=== PATIENT | female | born 1955 | race Caucasian/White ===

== ENCOUNTER → 2019-01-26 | Outpatient (CLI) | payer OTHER ==
[~2019-01-26] MED LIST: CARAFATE 1GM1 G PO; FLEXERIL 1010 MG/TAB PO; LORTAB 5/500 501 TAB PO; PERCOCET 325 MG1 TA2 PO; PERCOCET 325 MG1 TA3 PO; PERCOCET 5/321 UDTAB PO; PREVACID 30MG30 M1 PO; PROTONIX 40MG T40 MG PO; SOMA 350MG350 MG/TAB PO; TOPROL XL 50MG50 MG PO; TOPROL XL100 MG PO; TOPROL XL50 MG PO; XANAX 0.5MG0.5 MG PO; ZANAFLEX 4MG TAB4 MG PO; ZANAFLEX CAPSULE2 MG PO; ZOCOR 20MG20 MG PO
== END ==
LOC: COL.VAS 14:46
DX: Z13.6 Encounter for screening for cardiovascular disorders (principal); R60.9 Edema, unspecified

== ENCOUNTER 2019-06-18 19:17 | Observation (INO) | payer OTHER ==
[~2019-06-18] VITALS: Ht 160 cm; Wt 119.2 kg
[2019-06-18 21:58] LABS: BASO % 0.2 % (0.0-2.0); EOS # 0.1 (0.0-0.7); EOS % 1.2 % (0-4.0); GRAN % 66.7 % (42.2-75.2); HEMATOCRIT 39.4 % (37.0-47.0); HEMOGLOBIN 12.7 g/dl (12.5-16.0); LYMPH # 1.5 (1.2-3.4); LYMPH % 24.4 % (20.0-51.0); MEAN CELL VOLUME 95 fl (80.0-100.0); MEAN CORPUSCULAR HEMOGLOBIN 31 pg (27.0-31.0); MEAN CORPUSCULAR HGB CONC 32 g/dl (33.0-37.0); MEAN PLATELET VOLUME 9.9 fl (7.4-10.4); MONO # 0.4 (0.1-0.6); MONO % 7.2 % (1.7-9.3); PLATELET COUNT 179 K/mm3 (130-400); RED BLOOD COUNT 4.15 M/mm3 (4.10-5.30); REDCELL DISTRIBUTION WIDTH-CV 13.7 % (11.5-14.5)
[2019-06-18 22:08] LABS: ALANINE AMINOTRANSFERASE 21 U/L (9-52); ALBUMIN 4.2 gm/dL (3.5-5.0); ALKALINE PHOSPHATASE 73 U/L (50-136); ANION GAP 9 mmol/L (7-16); AST,SGOT 22 U/L (15-37); BILIRUBIN,TOTAL 0.5 mg/dL (0.0-1.0); BLOOD UREA NITROGEN 21 mg/dL (7-17); CALCIUM 9.1 mg/dL (8.4-10.2); CARBON DIOXIDE 30 mmol/L (22-30); CHLORIDE 100 mmol/L (98-107); CREATININE, serum 0.76 (0.52-1.25); GLUCOSE 147 mg/dL (74-106); POTASSIUM 3.6 mmol/L (3.4-5.0); SODIUM 139 mmol/L (137-145); TOTAL PROTEIN 7.4 gm/dL (6.4-8.2)
[2019-06-18 22:29] LABS: TROPONIN-I < 0.012 ng/mL (0.000-0.035)
[2019-06-19] MEDS ORDERED: ZIAC 10/6.25M1 UDTAB PO (00:03)
[2019-06-19] MEDS ORDERED: IMDUR 60MG60 MG/TAB PO (00:04)
[2019-06-19] MEDS ORDERED: LASIX 20MG TABL20 MG PO (00:05)
[2019-06-19] MEDS ORDERED: ACTOS30 MG PO (00:06)
[2019-06-19] MEDS ORDERED: NITROSTAT0.4 MG/TAB SL (00:07)
[2019-06-19] MEDS ORDERED: ASPIRIN 81M81 MG/TA2 PO (00:07)
[2019-06-19 01:06] VITALS: BP 140/44; PULSE 57; TEMP 97.9
[2019-06-19] MEDS ORDERED: BUMEX2 MG PO (01:17)
[2019-06-19] MEDS ORDERED: KLOR-CON 88 ME1 PO (01:19)
--- NOTE | 2019-06-19 02:27 | NUR ---
Arrived per cart from ED, accompanied by daughter. Unable to move self from cart to bed, slide board used. Pt has rené wrap to left knee, swelling noted. Has bilateral lower leg edema chronically. Ice pack on knee. Pt has history of pain and takes Percocet QID. IVF infusing to right forearm without redness or swelling.
[2019-06-19 03:12] VITALS: BP 102/72; PULSE 50; TEMP 98.1
[2019-06-19 03:52] LABS: BASO % 0.2 % (0.0-2.0); EOS # 0.1 (0.0-0.7); EOS % 1.1 % (0-4.0); GRAN # 3.4 (1.4-6.5); GRAN % 59.8 % (42.2-75.2); LYMPH # 1.8 (1.2-3.4); LYMPH % 31.6 % (20.0-51.0); MEAN CELL VOLUME 95 fl (80.0-100.0); MEAN CORPUSCULAR HGB CONC 32 g/dl (33.0-37.0); MEAN PLATELET VOLUME 9.8 fl (7.4-10.4); MONO # 0.4 (0.1-0.6); MONO % 7.1 % (1.7-9.3); PLATELET COUNT 153 K/mm3 (130-400); RED BLOOD COUNT 3.46 M/mm3 (4.10-5.30); REDCELL DISTRIBUTION WIDTH-CV 13.7 % (11.5-14.5)
[2019-06-19 03:57] LABS: HEMOGLOBIN 10.6 g/dl (12.5-16.0); MEAN CORPUSCULAR HEMOGLOBIN 31 pg (27.0-31.0)
--- NOTE | 2019-06-19 04:00 | NUR ---
Pt remains sleeping, spouse at bedside. IVF infusing without problem.
[2019-06-19 04:01] LABS: ANION GAP 6 mmol/L (7-16); BLOOD UREA NITROGEN 18 mg/dL (7-17); CALCIUM 8.4 mg/dL (8.4-10.2); CARBON DIOXIDE 30 mmol/L (22-30); CHLORIDE 104 mmol/L (98-107); CREATININE, serum 0.74 (0.52-1.25); GLUCOSE 111 mg/dL (74-106); POTASSIUM 3.4 mmol/L (3.4-5.0); SODIUM 140 mmol/L (137-145)
[2019-06-19 04:13] LABS: TROPONIN-I < 0.012 ng/mL (0.000-0.035)
[2019-06-19 08:24] VITALS: BP 146/67; PULSE 63; TEMP 98.8
--- NOTE | 2019-06-19 11:10 | NUR ---
Hospitalist rounded. MRI ordered of lumber spine. Lainey From MRI received patient on cart. Patient started having anxiety about claustrophobia-ativan ordered & given per orders. Morphine for severe back pain prior to Mri as well, then she has concerns about nausea, zofran PRN. Iv to INT per orders. Patient has chronic edema to BLE, worsening with IVF. Patient did not have any interest in breakfast. She has been up to bedside commode-slow to move but did okay with walker & gaitbelt 2 assist. Ice pack has been to knee, Cms intact, Will await her return from MRI
[2019-06-19 12:34] VITALS: BP 107/59; PULSE 95; TEMP 98.9
--- NOTE | 2019-06-19 13:02 | NUR ---
Patient has returned from MRI. Reports Ativan did help her anxiety. Pain more elevated. Percocet for home regiment, main complaint is back pain still, some pain in her L.knee. She still has minimal appetite. Her at bedside.
[2019-06-19 16:16] VITALS: BP 102/43; PULSE 57; TEMP 98.4
--- NOTE | 2019-06-19 19:03 | NUR ---
Patient resting in bed. Family at bedside. Better appetite this evening. Pain is increased after ortho rounded & manipulated knee- immobilizer ordered. Patient has required Iv pain medication, & hospitlaist verified her able to have home muscle relaxant. Patient has been using [place] jason, hopeful for dc home tmrw.
[2019-06-19 19:40] VITALS: BP 91/46; PULSE 61; TEMP 98
--- NOTE | 2019-06-19 19:45 | NUR ---
PATIENT UP TO BATHROOM WITH GAIT BELT/WALKER/ONE ASSIST. GAIT SLOW AND STEADY. ASKING FOR PAIN MEDS.
--- NOTE | 2019-06-19 20:03 | NUR ---
MEDICATED WITH HS MEDS INCLUDING MORPHINE 2MG IVP. HAS SL TO RIGHT FOREARM WITHOUT REDNESS OR SWELLING. HAS BRUISING TO LEFT KNEE, MONSTER WRAP REMOVED PER HER REQUEST. SKIN TO LEFT KNEE SENSITIVE TO TOUCH, EDEMA PRESENT. IS ALERT AND ORIENTED X4.
[2019-06-20] VITALS (7 sets, daily range): BP systolic 105–121; BP diastolic 43–58; PULSE 56–66; TEMP 98–99.7
--- NOTE | 2019-06-20 03:16 | NUR ---
PATIENT UP TO BATHROOM TO VOID, USING WALKER/GAIT BELT AND ONE ASSIST. GAIT SLOW AND STEADY. MEDICATED WITH MORPHINE 2MG IVP FOR PAIN 8/10 TO LEFT KNEE. REFUSES ICE AND HAS NOT TRIED THE IMMOBILIZER WHEN UP.
--- NOTE | 2019-06-20 05:30 | NUR ---
Reports pain 9/10 to left knee, medicated with Morphine 2mg IV, Percocet and Zanaflex 2mg PO. Has been ambulating to the bathroom with walker and assist.
[2019-06-20 07:25] LABS: BASO % 0.6 % (0.0-2.0); EOS # 0.1 (0.0-0.7); EOS % 1.3 % (0-4.0); GRAN # 2.9 (1.4-6.5); GRAN % 55.4 % (42.2-75.2); HEMOGLOBIN 10.2 g/dl (12.5-16.0); LYMPH # 1.8 (1.2-3.4); LYMPH % 33.8 % (20.0-51.0); MEAN CELL VOLUME 98 fl (80.0-100.0); MEAN CORPUSCULAR HEMOGLOBIN 31 pg (27.0-31.0); MEAN CORPUSCULAR HGB CONC 31 g/dl (33.0-37.0); MONO # 0.5 (0.1-0.6); MONO % 8.7 % (1.7-9.3); PLATELET COUNT 150 K/mm3 (130-400); RED BLOOD COUNT 3.33 M/mm3 (4.10-5.30)
[2019-06-20 07:27] LABS: CALCIUM 8.1 mg/dL (8.4-10.2); CREATININE, serum 0.93 (0.52-1.25); POTASSIUM 3.7 mmol/L (3.4-5.0)
[2019-06-20 07:33] LABS: HEMATOCRIT 32.6 % (37.0-47.0)
--- NOTE | 2019-06-20 11:52 | NUR ---
SW met with the patient to discuss a discharge plan. The patient lives alone in [place]. The patient has a walker, if needed and patient reports independence with ADLs. The patient's PCP is Dr. Paez and patient receives medications from [facility] with no difficulties. The patient does not have advanced directives in the EMR but was interested in a DPOA-HC form. Form provided. The patient plans to return home upon discharge with daughter or friend providing transportation. There are no additonal needs at this time.
--- NOTE | 2019-06-20 18:22 | NUR ---
Patient resting in bed. Her po pain medication seems to last about 3 hours and then she is requesting medication, but she has been able to make it the full 4 hours. Pain elevated with movement, but she was able to work with therapy. She has tolerated diet, no nausea. Immobilzer brace that was order did not fit patient. Will report off to night nurse
--- NOTE | 2019-06-20 19:07 | NUR ---
Patient reports pain in her LLE. Percocet did not relieve, HS muscle relaxant given.
--- NOTE | 2019-06-21 02:47 | NUR ---
PATIENT DOING WELL THROUGHOUT NIGHT. TAKING PRN PERCOCET Q 4 HRS, BUT REQUESTS MORE OFTEN. STATES IT IS TOLERABLE TO WAIT BUT PAIN IS MODERATE. INT TO R FA. 3 L O2 VIA NC. BRUISING TO L KNEE NOTED. NO FURTHER NEEDS AT THIS TIME. WILL CONTINUE TO MONITOR.
[2019-06-21 03:08] VITALS: BP 115/46; PULSE 66; TEMP 97.9
[2019-06-21 08:35] VITALS: BP 126/54; PULSE 63; TEMP 98.1
[2019-06-21] MEDS ORDERED: PERCOCET 325 MG1 TA3 PO (09:25)
[2019-06-21 10:12] LABS: BASO % 0.4 % (0.0-2.0); EOS # 0.1 (0.0-0.7); EOS % 1.2 % (0-4.0); GRAN # 2.7 (1.4-6.5); GRAN % 52.6 % (42.2-75.2); HEMOGLOBIN 10.9 g/dl (12.5-16.0); LYMPH # 1.9 (1.2-3.4); LYMPH % 36.3 % (20.0-51.0); MEAN CELL VOLUME 95 fl (80.0-100.0); MEAN CORPUSCULAR HEMOGLOBIN 31 pg (27.0-31.0); MEAN CORPUSCULAR HGB CONC 32 g/dl (33.0-37.0); MEAN PLATELET VOLUME 9.6 fl (7.4-10.4); MONO # 0.5 (0.1-0.6); MONO % 9.1 % (1.7-9.3); PLATELET COUNT 165 K/mm3 (130-400); RED BLOOD COUNT 3.56 M/mm3 (4.10-5.30)
[2019-06-21 10:16] LABS: HEMATOCRIT 33.9 % (37.0-47.0)
[2019-06-21 10:48] LABS: CREATININE, serum 0.79 (0.52-1.25); POTASSIUM 3.2 mmol/L (3.4-5.0)
--- NOTE | 2019-06-21 11:00 | NUR ---
Patient is doing well today. She is getting up well with PT. She stated has a walker at home and everything else she needs to get around. Patient is well controlled with pain pills. She is drowsy this morning when she lays in bed. Denies nausea. LLE is elevated on pillows with ice. Encouraged her to keep it up. No other changes at this time. Call light within reach.
[2019-06-21 11:55] VITALS: BP 127/73; PULSE 66; TEMP 99
[2019-06-21 16:14] VITALS: BP 95/47; PULSE 58; TEMP 97.9
--- NOTE | 2019-06-21 17:35 | NUR ---
Patient is discharging home. Discharge instructions discussed with patient and family. No questions verbalized. Explained she needs to call to make follow up appointments. Attempted to call when order for discharge was put in but the offices were already closed. She has a prescription for norco to get filled at this pharmacy. Copies of discharge instructions sent with patient. All belongings packed up and sent with patient. Patient walked out via wheel chair by Juan CABEZAS.
== END 2019-06-21 17:35 | disposition home or self-care (01) ==
LOC: COL.ER 19:17 → SURG 23:30
PROVIDERS: Emergency Medicine; Nurse Practitioner Family; Physician Assistant; ADMIT Student in an Organized Health Care Education/Training Program
DX: M79.662 Pain in left lower leg (principal); J96.00 Acute respiratory failure, unspecified whether with hypoxia or hypercapnia; I11.0 Hypertensive heart disease with heart failure; I50.30 Unspecified diastolic (congestive) heart failure; E78.5 Hyperlipidemia, unspecified; I25.10 Atherosclerotic heart disease of native coronary artery without angina pectoris; I34.1 Nonrheumatic mitral (valve) prolapse; R60.0 Localized edema; E11.9 Type 2 diabetes mellitus without complications; K21.9 Gastro-esophageal reflux disease without esophagitis; F41.9 Anxiety disorder, unspecified; M79.7 Fibromyalgia; M54.9 Dorsalgia, unspecified; G89.29 Other chronic pain; W18.30XA Fall on same level, unspecified, initial encounter; I50.33 Acute on chronic diastolic (congestive) heart failure; Z79.899 Other long term (current) drug therapy; Z79.82 Long term (current) use of aspirin
CPT/HCPCS: 99222-AI; 99232-AI; 99239; J1170; J1650; J1885; J2060; J2270; J2405; J2550; J7030

== ENCOUNTER 2021-07-10 11:44 | Inpatient (IN) | payer MEDICARE ==
[~2021-07-10] VITALS: Ht 160 cm; Wt 111.2 kg
[~2021-07-10 11:44] MED LIST changes: +ACTOS30 MG PO; +ASPIRIN 81M81 MG/TA2 PO; +BUMEX2 MG PO; +IMDUR 60MG60 MG/TAB PO; +KLOR-CON 88 ME1 PO; +LASIX 20MG TABL20 MG PO; +NITROSTAT0.4 MG/TAB SL; +ZIAC 10/6.25M1 UDTAB PO
[2021-07-10 12:47] LABS: HEMATOCRIT 39.3 % (37.0-47.0); HEMOGLOBIN 12.7 g/dl (12.5-16.0); MEAN CELL VOLUME 93 fl (80.0-100.0); MEAN CORPUSCULAR HEMOGLOBIN 30 pg (27-31); MEAN CORPUSCULAR HGB CONC 32 g/dl (33.0-37.0); PLATELET COUNT 201 K/mm3 (130-400); RED BLOOD COUNT 4.23 M/mm3 (4.10-5.30); REDCELL DISTRIBUTION WIDTH-CV 14.5 % (11.5-14.5)
[2021-07-10 12:54] LABS: INR 1.3 (0.8-3.0); PROTHROMBIN TIME 14.4 SECONDS (9.7-12.8)
[2021-07-10] MEDS ORDERED: ASPIRIN E.C. 8181 MG PO (13:19)
[2021-07-10 13:33] LABS: BILIRUBIN,TOTAL 0.9 mg/dL (0.2-1.2); C-REACTIVE PROTEIN 6.32 mg/dL (0.00-0.50); CALCIUM 8.4 mg/dL (8.4-10.2); CREATININE, serum 1.64 mg/dL (0.57-1.11); POTASSIUM 3.6 mmol/L (3.5-4.5); TOTAL PROTEIN 7.1 gm/dL (6.2-8.1)
[2021-07-10 13:40] LABS: TROPONIN-I 0.034 ng/mL (0.00-0.033)
[2021-07-10 13:43] LABS: BAND 2 % (0-10); EOSINOPHIL 1 % (0-4); LYMPHOCYTE 18 % (20.0-51.0); NEUTROPHILS 70 % (42.0-75.2); PLATELET ESTIMATE NORMAL (NORMAL)
[2021-07-10 18:27] VITALS: BP 131/94; PULSE 66; TEMP 98
[2021-07-10 21:11] VITALS: BP 143/64; PULSE 71; TEMP 98.5
--- NOTE | 2021-07-10 21:30 | NUR ---
Patient is resting in bed, alert and oriented x 4, VSS, 4L O2 NC. NS running at 100ml/hr. She states that her symptoms started last thursdayJul 05. She is afraid all her family started to be positive for COVID. Assessment completed, medications provided. No further needs at this time. Call light within reach.
[2021-07-11 01:29] VITALS: BP 132/56; PULSE 66; TEMP 97.7
--- NOTE | 2021-07-11 02:02 | NUR ---
Patient reports general discomfort and asked for Tylenol, provided.
[2021-07-11 04:25] VITALS: BP 143/73; PULSE 143; TEMP 97.6
[2021-07-11 06:11] LABS: HEMOGLOBIN 11.6 g/dl (12.5-16.0); MEAN CELL VOLUME 93 fl (80.0-100.0); MEAN CORPUSCULAR HEMOGLOBIN 29 pg (27-31); MEAN CORPUSCULAR HGB CONC 32 g/dl (33.0-37.0); PLATELET COUNT 232 K/mm3 (130-400); RED BLOOD COUNT 3.94 M/mm3 (4.10-5.30); REDCELL DISTRIBUTION WIDTH-CV 13.9 % (11.5-14.5)
--- NOTE | 2021-07-11 06:11 | NUR ---
Patient has been stable along the night. Right now at 5L NC. Patient looks tired but she is able to ambulate from bed to restroom with no problems. Some nausea and PRN provided. Report will be given to day RN.
[2021-07-11 06:15] LABS: HEMATOCRIT 36.5 % (37.0-47.0)
[2021-07-11 06:26] LABS: CALCIUM 7.9 mg/dL (8.4-10.2); CREATININE, serum 1.17 mg/dL (0.57-1.11); POTASSIUM 3.6 mmol/L (3.5-4.5)
--- NOTE | 2021-07-11 06:43 | NUR ---
Lab reported critical value D-dimer [address] who will check on the patient.
[2021-07-11 07:34] LABS: BAND 1 % (0-10); LYMPHOCYTE 22 % (20.0-51.0); NEUTROPHILS 71 % (42.0-75.2); PLATELET ESTIMATE NORMAL (NORMAL)
[2021-07-11 07:35] LABS: ANISOCYTOSIS 1+; MICROCYTOSIS 1+; POLYCHROMASIA 1+
[2021-07-11 08:14] VITALS: BP 134/60; PULSE 79; TEMP 98
--- NOTE | 2021-07-11 09:50 | NUR ---
The patient is COVID positive. SW contacted the patient to discuss discharge plan. The patient lives in [place] with her younger daughter, Marlene Espinoza (ph#[phone]). She reports independence with ADLs and does not have any DME. The patient's PCP is Dr. Anisha Paez and she receives her medications from [facility]. The patient does not have a DPOA-HC in EMR, but she states that she does have one completed and that the form is in her safety deposit box. She reports that her kids do not have her information to get in the box, so would not be able to get the copy. She reports that she is seperated from her , but they are not legally . She has three children: Radha Espinoza, Marlene Espinoza, and Apolinar Espinoza. SW inquired if she would be interested in completing a new DPOA-HC while here. The patient was. The patient verbalized that she wants to designate her daughter, Marlene, and then her son, Apolinar Espinoza (ph#[phone]), as the alternate. JOSE FRANCISCO to collaborate with the patient's RN to obtain the patient's signature. The patient plans on returning home with her daughter upon discharge. She is currently requiring 5 liters of oxygen. SW to continue to monitor. *Discharge plan: home with daughter*
--- NOTE | 2021-07-11 10:04 | NUR ---
PT ASSESSED. NO COMPLAINTS OF PAIN OR DYSPNEA. NO SIGNS OR SYMPTOMS OF DISTRESS. CALL LIGHT WITHIN REACH
--- NOTE | 2021-07-11 10:50 | NUR ---
JOSE FRANCISCO collaborated with the patient's RN on the DPOA-HC. The patient signed the form. JOSE FRANCISCO and the patient's RN, Faith, witnessed the patient's signature. SW placed the completed form and copies on the patient's chart.
[2021-07-11 12:07] VITALS: BP 130/53; PULSE 78; TEMP 98.4
[2021-07-11 17:06] VITALS: BP 143/69; PULSE 78; TEMP 98
[2021-07-11 19:40] VITALS: BP 146/64; PULSE 72; TEMP 98.7
[2021-07-12] VITALS (7 sets, daily range): BP systolic 116–146; BP diastolic 54–79; PULSE 58–74; TEMP 97.9–98.2
--- NOTE | 2021-07-12 00:05 | NUR ---
ASSESSMENT COMPLETE FOR THIS SHIFT. PT COOPERATIVE WITH CARES. PT RESTING IN BED NAPPING. PT COMPLAINS OF BACK AND HIP PAIN THAT SHE RATES AT A 7. PT GIVEN PERCOCET AND ZANAFLEX FOR PAIN. PAIN MEDS HAVE REDUCED PAIN PER PT. PT DENIES PALPITATIONS, SOB, DIZZINESS. PT STATES SHE HAS NO OTHER NEEDS AT THIS TIME. CALL LIGHT WITHIN REACH.
[2021-07-12 06:09] LABS: MEAN CELL VOLUME 93 fl (80.0-100.0); MEAN CORPUSCULAR HEMOGLOBIN 30 pg (27-31); MEAN CORPUSCULAR HGB CONC 32 g/dl (33.0-37.0); MEAN PLATELET VOLUME 9.7 fl (7.4-10.4); PLATELET COUNT 282 K/mm3 (130-400); RED BLOOD COUNT 3.69 M/mm3 (4.10-5.30); REDCELL DISTRIBUTION WIDTH-CV 13.9 % (11.5-14.5)
[2021-07-12 06:13] LABS: HEMATOCRIT 34.3 % (37.0-47.0)
[2021-07-12 06:22] LABS: CALCIUM 7.9 mg/dL (8.4-10.2); POTASSIUM 3.3 mmol/L (3.5-4.5)
[2021-07-12 07:57] LABS: BAND 4 % (0-10); LYMPHOCYTE 13 % (20.0-51.0); NEUTROPHILS 73 % (42.0-75.2); PLATELET ESTIMATE NORMAL (NORMAL)
[2021-07-12 07:58] LABS: MICROCYTOSIS 1+
--- NOTE | 2021-07-12 10:10 | NUR ---
PT ASSESSED. NO COMPLAINTS OF PAIN OR DYSPNEA. NO SIGNS OR SYMPTOMS OF DISTRESS. CALL LIGHT WITHIN REACH
--- NOTE | 2021-07-13 00:09 | NUR ---
ASSESSMENT COMPLETE FOR THIS SHIFT. PT COOPERATIVE WITH CARES. PT RESTING IN BED AWAITING EVENING MEDS. PT CONTINUES TO COMPLAIN OF BACK AND HIP PAIN, THAT SHE RATES AT A 7. PT GIVEN PERCOCET AND ZANAFLEX FOR PAIN. PAIN MEDS SUCCESSFULLY RELIEVED PT'S PAIN. PT DENIED PALPITATIONS, SOB OR DIZZINESS. AFTER REQUESTING ICE AND A WARM BLANKET, PT STATED SHE HAD NO OTHER NEEDS AT THIS TIME. CALL LIGHT WITHIN REACH.
[2021-07-13 03:46] VITALS: BP 132/58; PULSE 65; TEMP 98.4
[2021-07-13 07:49] LABS: CALCIUM 7.9 mg/dL (8.4-10.2); CREATININE, serum 0.91 mg/dL (0.57-1.11); POTASSIUM 3.5 mmol/L (3.5-4.5)
[2021-07-13 08:28] LABS: HEMOGLOBIN 10.6 g/dl (12.5-16.0); MEAN CELL VOLUME 95 fl (80.0-100.0); MEAN CORPUSCULAR HEMOGLOBIN 30 pg (27-31); MEAN CORPUSCULAR HGB CONC 32 g/dl (33.0-37.0); MEAN PLATELET VOLUME 9.6 fl (7.4-10.4); PLATELET COUNT 290 K/mm3 (130-400); RED BLOOD COUNT 3.51 M/mm3 (4.10-5.30); REDCELL DISTRIBUTION WIDTH-CV 14.1 % (11.5-14.5)
[2021-07-13 08:29] VITALS: BP 139/67; PULSE 66; TEMP 98
[2021-07-13 08:31] LABS: HEMATOCRIT 33.2 % (37.0-47.0)
--- NOTE | 2021-07-13 09:17 | NUR ---
PT ASSESSED. NO COMPLAINTS OF PAIN OR DYSPNEA. MEDICATIONED GIVEN PER MAR. NO OTHER CONCERNS AT THSI TIME. CALL LIGHT WITHIN REACH
[2021-07-13 09:40] LABS: BAND 2 % (0-10); LYMPHOCYTE 12 % (20.0-51.0); NEUTROPHILS 71 % (42.0-75.2); PLATELET ESTIMATE NORMAL (NORMAL)
[2021-07-13 09:41] LABS: HYPOCHROMIA 1+
[2021-07-13 12:11] VITALS: BP 159/77; PULSE 67; TEMP 98.3
[2021-07-13 15:21] VITALS: BP 151/76; PULSE 75; TEMP 98.1
[2021-07-13 19:21] VITALS: BP 144/102; PULSE 70; TEMP 98.6
--- NOTE | 2021-07-13 22:41 | NUR ---
ASSESSMENT COMPLETE FOR THIS SHIFT. PT UP TO THE RESTROOM WHEN I WALKED IN FOR ASSESSMENT. PT STATED JOKINGLY, "THE LASIX THEY GAVE IS WORKING A BIT TOO WELL." PT CONTINUES WITH COMPLAINTS OF LEG, HIP AND BACK PAIN. ZANAFLEX GIVEN FOR PAIN, UNABLE TO GIVE PERCOCET BECAUSE SHE HAD IT LESS THAN 6HRS BEFORE. WILL CONTINUE TO MONITOR PT'S PAIN AND GIVE PERCOCET WHEN APPROPRIATE. PT ALSO STATES SHE FEELS MOST BETTER AND IS EAGER TO GET HOME. PT DENIES PALPITATIONS, SOB, N,V,D OR DIZZINESS. PT STATES SHE HAS NO OTHER NEEDS AT THIS TIME. CALL LIGHT WITHIN REACH.
[2021-07-13 23:57] VITALS: BP 150/84; PULSE 62; TEMP 97.9
[2021-07-14] VITALS (8 sets, daily range): BP systolic 126–173; BP diastolic 55–91; PULSE 58–73; TEMP 97.8–98.2
[2021-07-14 06:18] LABS: BASO % 0.2 % (0.0-2.0); GRAN # 3.8 K/mm3 (1.4-6.5); GRAN % 68.2 % (42.2-75.2); HEMOGLOBIN 11.8 g/dl (12.5-16.0); LYMPH # 1.1 K/mm3 (1.2-3.4); LYMPH % 19.4 % (20.0-51.0); MEAN CELL VOLUME 92 fl (80.0-100.0); MEAN CORPUSCULAR HEMOGLOBIN 30 pg (27-31); MEAN CORPUSCULAR HGB CONC 32 g/dl (33.0-37.0); MEAN PLATELET VOLUME 9.7 fl (7.4-10.4); MONO # 0.6 K/mm3 (0.1-0.6); MONO % 10.8 % (1.7-9.3); PLATELET COUNT 222 K/mm3 (130-400); RED BLOOD COUNT 3.96 M/mm3 (4.10-5.30); REDCELL DISTRIBUTION WIDTH-CV 13.7 % (11.5-14.5)
[2021-07-14 06:23] LABS: HEMATOCRIT 36.5 % (37.0-47.0)
[2021-07-14 06:38] LABS: ALBUMIN 2.7 gm/dL (3.4-4.8); BILIRUBIN,TOTAL 0.5 mg/dL (0.2-1.2); C-REACTIVE PROTEIN 1.38 mg/dL (0.00-0.50); CREATININE, serum 1.02 mg/dL (0.57-1.11); POTASSIUM 3.2 mmol/L (3.5-4.5); TOTAL PROTEIN 5.9 gm/dL (6.2-8.1)
[2021-07-14 07:00] LABS: BILIRUBIN,DIRECT 0.3 mg/dL (0.0-0.5)
--- NOTE | 2021-07-14 09:33 | NUR ---
PT ASSESSED. NO COMPLAINTS OF PAIN OR DYSPNEA. NO SIGNS OR SYMPTOMS OF DISTRESS. CALL LIGHT WITHIN REACH
--- NOTE | 2021-07-14 10:03 | NUR ---
ATTEMPTED EX OX. PT TOO DIZZY TO WALK. RN AND MD NOTIFIED
--- NOTE | 2021-07-15 00:57 | NUR ---
ASSESSMENT COMPLETE FOR THIS SHIFT. PT UP TO THE RESTROOM WHEN I WALKED IN FOR ASSESSMENT. PT CONTINUES WITH CHRONIC BACK, HIP AND LEG PAIN. PERCOCET AND ZANAFLEX FOR PAIN. PT DENIES PALPITATIONS, N,V,D, SOB OR DIZZINESS. NO EVENTFULL CHANGES NOTED WITH PT THIS SHIFT. PT STATES SHE HAS NO OTHER NEEDS AT THIS TIME. CALL LIGHT WITHIN REACH.
[2021-07-15 04:00] VITALS: BP 148/70; PULSE 69; TEMP 97.9
[2021-07-15 07:18] LABS: HEMOGLOBIN 12.5 g/dl (12.5-16.0); MEAN CELL VOLUME 94 fl (80.0-100.0); MEAN CORPUSCULAR HEMOGLOBIN 30 pg (27-31); MEAN CORPUSCULAR HGB CONC 32 g/dl (33.0-37.0); MEAN PLATELET VOLUME 9.7 fl (7.4-10.4); PLATELET COUNT 321 K/mm3 (130-400); RED BLOOD COUNT 4.15 M/mm3 (4.10-5.30); REDCELL DISTRIBUTION WIDTH-CV 13.8 % (11.5-14.5)
[2021-07-15 07:27] LABS: CALCIUM 8.4 mg/dL (8.4-10.2); CREATININE, serum 1.02 mg/dL (0.57-1.11); POTASSIUM 3.5 mmol/L (3.5-4.5)
[2021-07-15 08:09] LABS: EOSINOPHIL 1 % (0-4); HYPOCHROMIA 1+; LYMPHOCYTE 23 % (20.0-51.0); NEUTROPHILS 65 % (42.0-75.2); PLATELET ESTIMATE NORMAL (NORMAL)
[2021-07-15 08:15] VITALS: BP 125/64; PULSE 76; TEMP 98.1
--- NOTE | 2021-07-15 09:00 | NUR ---
Assessment completed, alert/oriented, vital signs stable, reports feeling better overall, using percocet PRN for chronic back pain / this is a home med for her as well, lungs are CTA/ slightly diminished in bases, no resp.difficulty noted, heart RRR/distal pulses are palpable, meds given, she is sitting up having breakfast and dneies other needs, plans for Ex. ox today and possible discharge, she denies needs at this time
[2021-07-15 11:51] VITALS: BP 135/72; PULSE 74; TEMP 98.4
--- NOTE | 2021-07-15 14:45 | NUR ---
PATIENT DOES NOT REQUIRE O2 WITH AMBULATION, BUT THERE WAS CONCERN FOR EXTREME NAUSEA AND DIZZINESS AFTER WALKING. PATIENT WAS SAT DOWN AT THE SIDE OF THE BED AND WAS VOMITING AFTER THE WALK.
[2021-07-15 17:03] VITALS: BP 157/82; PULSE 74; TEMP 99.1
[2021-07-15 20:05] VITALS: BP 155/91; PULSE 80; TEMP 98.2
--- NOTE | 2021-07-15 22:30 | NUR ---
ASSESSMENT COMPLETE FOR THIS SHIFT. PT RESTING IN BED NAPPING WHEN I WALKED IN FOR ASSESSMENT. PT DENIES PALPITATIONS, SOB, N,V,D OR DIZZINESS. PT CONTINUES WITH COMPLAINTS OF CHRONIC BACK, HIP AND LEG PAIN. PERCOCET AND ZANAFLEX GIVEN FOR PAIN. PT ALSO COMPLAINS OF UPSET STOMACH. IV PHENERGAN GIVEN. PAIN AND UPSET STOMACH RELIEVED BY MEDS. PT STATES SHE HAS NO OTHER NEEDS AT THIS TIME. CALL LIGHT WITHIN REACH.
[2021-07-15 23:54] VITALS: BP 105/57; PULSE 70; TEMP 98
[2021-07-16 04:26] VITALS: BP 140/73; PULSE 71; TEMP 97.9
[2021-07-16 06:20] LABS: HEMOGLOBIN 12.9 g/dl (12.5-16.0); MEAN CELL VOLUME 93 fl (80.0-100.0); MEAN CORPUSCULAR HEMOGLOBIN 30 pg (27-31); MEAN CORPUSCULAR HGB CONC 32 g/dl (33.0-37.0); MEAN PLATELET VOLUME 9.5 fl (7.4-10.4); PLATELET COUNT 318 K/mm3 (130-400); REDCELL DISTRIBUTION WIDTH-CV 13.8 % (11.5-14.5)
[2021-07-16 06:29] LABS: CALCIUM 8.3 mg/dL (8.4-10.2); CREATININE, serum 1.2 mg/dL (0.57-1.11); POTASSIUM 3.6 mmol/L (3.5-4.5)
[2021-07-16 07:29] LABS: BAND 1 % (0-10); HYPOCHROMIA 1+; LYMPHOCYTE 28 % (20.0-51.0); NEUTROPHILS 61 % (42.0-75.2); PLATELET ESTIMATE NORMAL (NORMAL)
[2021-07-16 08:30] VITALS: BP 147/81; PULSE 75; TEMP 97.8
[2021-07-16 12:00] VITALS: BP 143/85; PULSE 78; TEMP 98.2
[2021-07-16] MEDS ORDERED: BUMEX 1MG TA1 MG/TA1 PO (12:49)
[2021-07-16] MEDS ORDERED: DECADRON6 MG PO (12:49)
--- NOTE | 2021-07-16 13:37 | NUR ---
The patient is to discharge today, 07/16. SW contacted the patient to review discharge plan and address OT's recommendation of possible home health. The patient reports that she plans on staying with her ex- for a few days. She states that she is not interested in home health at this time. SW read the IM form outloud to the patient. The patient verbalized understanding and gave SW approval to sign the form on her behalf. No additional needs at this time.
== END 2021-07-16 14:15 | disposition home or self-care (01) | DRG 177 ==
LOC: COL.ER 11:44 → MEDICAL 13:59
PROVIDERS: Emergency Medicine; Student in an Organized Health Care Education/Training Program; ADMIT Internal Medicine
PROC: XW033E5 Introduction of Remdesivir Anti-infective into Peripheral Vein, Percutaneous Approach, New Technology Group 5 (ICD-10-PCS; principal; 2021-07-10)
PROC: 5A0935A Assistance with Respiratory Ventilation, Less than 24 Consecutive Hours, High Flow/Velocity Cannula (ICD-10-PCS; 2021-07-12)
DX: U07.1 COVID-19 (principal); J12.82 Pneumonia due to coronavirus disease 2019; J96.01 Acute respiratory failure with hypoxia; N17.9 Acute kidney failure, unspecified; I50.32 Chronic diastolic (congestive) heart failure; I11.0 Hypertensive heart disease with heart failure; E11.9 Type 2 diabetes mellitus without complications; E78.5 Hyperlipidemia, unspecified; E66.9 Obesity, unspecified; G89.29 Other chronic pain; M54.9 Dorsalgia, unspecified; M79.7 Fibromyalgia; F41.9 Anxiety disorder, unspecified; K21.9 Gastro-esophageal reflux disease without esophagitis; I25.10 Atherosclerotic heart disease of native coronary artery without angina pectoris; Z88.1 Allergy status to other antibiotic agents; I25.2 Old myocardial infarction; Z79.82 Long term (current) use of aspirin; Z68.33 Body mass index [BMI] 33.0-33.9, adult
CPT/HCPCS: 99223-AI; 99232-AI; 99233-AI; 99239; J0248; J0696; J1100; J1650; J1815; J2405; J2550; J7030; J7050; J8540; Q9967

== ENCOUNTER → 2021-07-19 | Outpatient (CLI) | payer MEDICARE ==
[~2021-07-19] MED LIST changes: +ASPIRIN E.C. 8181 MG PO; +BUMEX 1MG TA1 MG/TA1 PO; +DECADRON6 MG PO
[2021-07-19 12:22] LABS: CALCIUM 8.8 mg/dL (8.4-10.2); CREATININE, serum 0.94 mg/dL (0.57-1.11); POTASSIUM 3.9 mmol/L (3.5-4.5)
== END ==
LOC: COL.LAB 11:26
PROVIDERS: Internal Medicine
DX: N17.9 Acute kidney failure, unspecified (principal)

== ENCOUNTER 2021-11-06 18:26 | Emergency (ER) | payer MEDICARE ==
[~2021-11-06] VITALS: Ht 160 cm; Wt 85.9 kg
[2021-11-06 18:31] VITALS: TEMP 98
[2021-11-06 19:15] LABS: BASO % 0.3 % (0.0-2.0); EOS # 0.1 K/mm3 (0.0-0.7); EOS % 1.1 % (0.0-4.0); GRAN # 3.6 K/mm3 (1.4-6.5); GRAN % 56.1 % (42.2-75.2); HEMOGLOBIN 10.9 g/dl (12.5-16.0); LYMPH # 2.1 K/mm3 (1.2-3.4); LYMPH % 33.1 % (20.0-51.0); MEAN CELL VOLUME 93 fl (80.0-100.0); MEAN CORPUSCULAR HEMOGLOBIN 30 pg (27-31); MEAN CORPUSCULAR HGB CONC 33 g/dl (33.0-37.0); MEAN PLATELET VOLUME 9.6 fl (7.4-10.4); MONO # 0.6 K/mm3 (0.1-0.6); MONO % 9.2 % (1.7-9.3); PLATELET COUNT 201 K/mm3 (130-400); REDCELL DISTRIBUTION WIDTH-CV 13.3 % (11.5-14.5)
[2021-11-06 19:25] LABS: HEMATOCRIT 33.5 % (37.0-47.0)
[2021-11-06 19:27] LABS: ALANINE AMINOTRANSFERASE 11 U/L (0-55); ALBUMIN 3.9 gm/dL (3.4-4.8); ALKALINE PHOSPHATASE 66 U/L (40-150); ANION GAP 12 mmol/L (7-16); AST,SGOT 13 U/L (5-34); BILIRUBIN,TOTAL 0.4 mg/dL (0.2-1.2); BLOOD UREA NITROGEN 23 mg/dL (10-20); CALCIUM 9.5 mg/dL (8.4-10.2); CARBON DIOXIDE 32 mmol/L (23-31); CHLORIDE 98 mmol/L (98-107); CREATININE, serum 1.08 mg/dL (0.57-1.11); GLUCOSE 111 mg/dL (70-99); POTASSIUM 3.7 mmol/L (3.5-4.5); SODIUM 142 mmol/L (136-145); TOTAL PROTEIN 7.2 gm/dL (6.2-8.1)
[2021-11-06 19:33] LABS: TROPONIN-I < 0.010 ng/mL (0.00-0.033)
[2021-11-06 20:51] LABS: COLLECTION METHOD CLEAN CATCH
[2021-11-06 20:59] LABS: PH 8 (5-8); SQUAMOUS EPITHELIAL 0-2 /hpf (0-10); URINE APPEARANCE Clear (CLEAR/HAZY); URINE BACTERIA Rare /hpf (NONE SEEN); URINE BILIRUBIN Negative (NEGATIVE); URINE BLOOD Negative (NEGATIVE); URINE COLOR Yellow (YELLOW); URINE GLUCOSE Negative (NEGATIVE); URINE KETONE Negative (NEGATIVE); URINE LEUKOCYTE ESTERASE Negative (NEGATIVE); URINE NITRATE Negative (NEGATIVE); URINE PROTEIN(semi-quant) Negative (NEGATIVE); URINE RBC 0-2 /hpf (0-2); URINE UROBILINOGEN Negative (NEGATIVE)
[2021-11-06 23:15] VITALS: BP 170/76; PULSE 60
== END 2021-11-06 23:15 | disposition home or self-care (01) ==
LOC: COL.ER 18:26
PROVIDERS: Nurse Practitioner Family
DX: R42 Dizziness and giddiness (principal); R55 Syncope and collapse; R00.1 Bradycardia, unspecified; R79.0 Abnormal level of blood mineral; R03.0 Elevated blood-pressure reading, without diagnosis of hypertension; M54.9 Dorsalgia, unspecified; M25.559 Pain in unspecified hip; G89.29 Other chronic pain; Z20.822 Contact with and (suspected) exposure to COVID-19; Z28.310 Unvaccinated for COVID-19; Z79.891 Long term (current) use of opiate analgesic
CPT/HCPCS: J2405

== ENCOUNTER → 2021-12-10 | Outpatient (CLI) | payer MEDICARE | LOC: COL.CARD 07:56 | DX: R00.1 Bradycardia, unspecified (principal) ==

== ENCOUNTER → 2022-01-23 | Outpatient (CLI) | payer MEDICARE | LOC: COL.CARD 08:02 | DX: R55 Syncope and collapse (principal) ==

== ENCOUNTER 2022-02-28 07:13 | Day surgery (SDC) | payer MEDICARE ==
[2022-02-28] VITALS (11 sets, daily range): BP systolic 97–143; BP diastolic 49–75; PULSE 59–73; TEMP 97.7–98.3
[~2022-02-28] VITALS: Ht 160.1 cm; Wt 116.0 kg
[2022-02-28] MEDS ORDERED: ZITHROMAX Z PA250 MG PO (07:28)
[2022-02-28] MEDS ORDERED: NORVASC 5MG5 MG/TAB PO (07:29)
[2022-02-28] MEDS ORDERED: BUMEX2 MG PO (07:29)
[2022-02-28] MEDS ORDERED: DIOVAN 160MG160 MG PO (07:31)
[2022-02-28 07:56] LABS: HEMOGLOBIN 11.1 g/dl (12.5-16.0); MEAN CELL VOLUME 92 fl (80.0-100.0); MEAN CORPUSCULAR HEMOGLOBIN 31 pg (27-31); MEAN CORPUSCULAR HGB CONC 33 g/dl (33.0-37.0); MEAN PLATELET VOLUME 9.4 fl (7.4-10.4); PLATELET COUNT 185 K/mm3 (130-400); RED BLOOD COUNT 3.64 M/mm3 (4.10-5.30); REDCELL DISTRIBUTION WIDTH-CV 13.8 % (11.5-14.5)
[2022-02-28 08:06] LABS: HEMATOCRIT 33.4 % (37.0-47.0)
[2022-02-28 08:08] LABS: INR 1.1 (0.8-3.0); PROTHROMBIN TIME 12.1 SECONDS (9.7-12.8)
[2022-02-28 08:14] LABS: CALCIUM 9.5 mg/dL (8.4-10.2); CREATININE, serum 1.27 mg/dL (0.57-1.11); POTASSIUM 3.1 mmol/L (3.5-4.5)
--- NOTE | 2022-02-28 09:33 | NUR ---
Initial visit; Patient and family thanked Manager Of Drilling for offering Prayer and God's blessings prior to patient's surgical procedure. Manager Of Drilling offered encouragement which appeared to comfort patient.
--- NOTE | 2022-02-28 10:07 | NUR ---
See merge for all medication, assessment, intervention, and vital sign times.
--- NOTE | 2022-02-28 11:15 | NUR ---
returned to room from woven label designer per bed, awake and alert, IV vancomycin infusing per pump and NS is off, O2 off and O2 sat 96%, dressing to left chest pacemaker site CD&I, ice to site, sling in place to left arm, denies needs at this time
--- NOTE | 2022-02-28 11:45 | NUR ---
sitting up in bed and taking water and tolerates well, instructed on ordering regular food
--- NOTE | 2022-02-28 12:30 | NUR ---
c/o pain to legs and requesting pain pill, medicated with percocet 7.5mg 1 tab
--- NOTE | 2022-02-28 13:00 | NUR ---
assisted up to bathroom, moves with slow steady gait, voided qs, has 1cmspot of pink drainage on dressing over pacemaker site, ice pack on, daughter at bedside
--- NOTE | 2022-02-28 14:15 | NUR ---
had lunch and tolerated well, now resting in bed and will try and take a nap
--- NOTE | 2022-02-28 15:15 | NUR ---
appears to be sleeping, in bed with lights off, eyes closed, resp quiet and easy
--- NOTE | 2022-02-28 16:00 | NUR ---
dressing continues to have small amount drainage approx 1-2 cm now and reinforced with tape
--- NOTE | 2022-02-28 17:00 | NUR ---
appears to be sleeping, resp quiet and easy
--- NOTE | 2022-02-28 18:13 | NUR ---
assisted up to bathroom with assistance of JOCELYNN
--- NOTE | 2022-02-28 18:22 | NUR ---
assisted back to bed from bathroom, dressing continues to have some shadowing to approx 4cm now, reinforced with folded 4x4s and tape
--- NOTE | 2022-02-28 18:40 | NUR ---
bedside shift report given to PASTOR Sweeney
--- NOTE | 2022-02-28 21:23 | NUR ---
PT UP TO BR TO VOID. BACK TO BED. HAS HX OF SYNCOPAL EPISODES FALLING DOWN STAIRS. HAS BILAT LEG AND BACK PAIN. SEE MAR FOR PERCOCET GIVEN FOR LEVEL 6/10 PAIN. ICE PACK TO LT CHEST PACEMAKER SITE. NO FURTHER DRAINAGE SHADOWING THROUGH DRESSING WITH DAYSHIFT. TELE INTACT. CALL LIGHT IN REACH. BED ALARM SET.
[2022-03-01] VITALS (7 sets, daily range): BP systolic 107–136; BP diastolic 53–71; PULSE 59–75; TEMP 97.6–98.5
--- NOTE | 2022-03-01 03:20 | NUR ---
TELEMENTRY CALLED. PT IN V FIB. PT WAKES EASILY UPON ROOM ENTRANCE. PT DROWSY. FEELS ALITTLE DIZZY. ICU STAFF HERE. VERIFIED A PACED AT 65. VSS. PT DOING FINE. NO CHEST PAIN.
--- NOTE | 2022-03-01 03:44 | NUR ---
UP TO BR. VOIDED. RT FOOT FRACTURE LIMITING AMB. BACK TO BED. REQUESTPAIN MED FOR HIPS AND BACK. SEE MAR. CALL LIGHT IN REACH. BED ALARM SET.
--- NOTE | 2022-03-01 04:43 | NUR ---
PT RESTING QUIETLY. NO DISTRESS.
--- NOTE | 2022-03-01 05:27 | NUR ---
PT REPORTS SL HEAVINESS ACROSS CHEST. SL SOA. VSS. TEMETRY RELATES PACED RHYTHM. WILL CONTINUE TO MONITOR. NO N/V.
--- NOTE | 2022-03-01 05:48 | NUR ---
PT STILL HAVING CX HEAVINESS, SOA, POUNDING IN LT EAR. PAGED DR WEBER DISPUTE COORDINATOR. VSS
--- NOTE | 2022-03-01 05:53 | NUR ---
NOTIFIED DR WEBER OF EARLIER EPISODE AT 0335 VFIB AND CURRENT PT C/O CHEST HEAVINESS, SOA, AND POUNDING IN LT EAR. NO NEW ORDERS. CONTINUE TO MONITOR.
--- NOTE | 2022-03-01 11:05 | NUR ---
ROUNDED, PLAN OF CARE REVIEWED. PATIENT DISCUSSED SYMPTOMS WITH AND ORDERS OBTAINED. WILL AWAIT LAB RESULTS AND CALL TO HER. PATIENT HAS BEEN RESTING THIS AM. REPORTS SORENESS AND PAIN FROM FALL AT HOME. SHE DDI WELL WITH BREAKFAST. VSS, TELE ON. WILL TR.
[2022-03-01 11:19] LABS: BASO % 0.2 % (0.0-2.0); EOS # 0.1 K/mm3 (0.0-0.7); EOS % 1.8 % (0.0-4.0); GRAN # 2.9 K/mm3 (1.4-6.5); GRAN % 59.9 % (42.2-75.2); HEMOGLOBIN 10.5 g/dl (12.5-16.0); LYMPH # 1.4 K/mm3 (1.2-3.4); LYMPH % 28.5 % (20.0-51.0); MEAN CELL VOLUME 93 fl (80.0-100.0); MEAN CORPUSCULAR HEMOGLOBIN 31 pg (27-31); MEAN CORPUSCULAR HGB CONC 33 g/dl (33.0-37.0); MEAN PLATELET VOLUME 9.6 fl (7.4-10.4); MONO # 0.5 K/mm3 (0.1-0.6); MONO % 9.6 % (1.7-9.3); PLATELET COUNT 164 K/mm3 (130-400); RED BLOOD COUNT 3.44 M/mm3 (4.10-5.30)
[2022-03-01 11:21] LABS: HEMATOCRIT 32.1 % (37.0-47.0)
[2022-03-01 11:35] LABS: ALBUMIN 3.1 gm/dL (3.4-4.8); BILIRUBIN,TOTAL 0.4 mg/dL (0.2-1.2); CREATININE, serum 1.02 mg/dL (0.57-1.11); POTASSIUM 3.4 mmol/L (3.5-4.5); TOTAL PROTEIN 5.8 gm/dL (6.2-8.1)
--- NOTE | 2022-03-01 12:48 | NUR ---
Pain relief after percocet. She did well with lunch. Troponin results normal. Will monitor.
--- NOTE | 2022-03-01 14:51 | NUR ---
Marketing Information Analyst met with patient for intake assessment/discharge planning; patient currently having blood drawn. Marketing Information Analyst introduced self to patient and will return.
[2022-03-01] MEDS ORDERED: TENORMIN 2525 MG/TAB PO (14:55)
[2022-03-01] MEDS ORDERED: KLOR-CON M2020 MEQ PO (14:58)
--- NOTE | 2022-03-01 15:10 | NUR ---
lab results called to , discharge orders obtained
--- NOTE | 2022-03-01 17:52 | NUR ---
Patient ready for discharge. Her exhusband here to take her home. We reviewed all discharge paperwork. We discussed med rec, with new scripts. Last doses taken. Incisions cares & signs & symptoms to contact doctor onured. Jason has follow up scheduled. Patient denies questions or concerns. thankful to get home. Wheeled out with all belongings.
== END 2022-03-01 17:57 | disposition home or self-care (01) ==
LOC: COL.CAR 07:13 → SURG 11:15 → COL.CAR 03-01 17:57
PROVIDERS: Internal Medicine Cardiovascular Disease
DX: I49.5 Sick sinus syndrome (principal); R55 Syncope and collapse; I44.1 Atrioventricular block, second degree; I25.10 Atherosclerotic heart disease of native coronary artery without angina pectoris; I10 Essential (primary) hypertension; Z79.899 Other long term (current) drug therapy; Z28.310 Unvaccinated for COVID-19; Z28.9 Immunization not carried out for unspecified reason
CPT/HCPCS: OP; C1769; C1785; C1894; C1898; J0690; J2250; J2405; J3010; J3370; J7050